=== PATIENT | male | born 1950 | race African-American/Black ===

== ENCOUNTER 2017-02-10 11:11 | Inpatient (IN) ==
[2017-02-10] MEDS ORDERED: SODIUM CHLORIDE 0.9% 1,000 ML IV STA (12:05)
[2017-02-10] MEDS ORDERED: cefTRIAXone 1,000 MG in SODIUM CHLORIDE 0.9% 100 ML IV STA (12:05)
--- NOTE | 2017-02-10 12:07 | Emergency Department Note ---
Popeye Saleem Brittany, am scribing for, and in the presence of, Lázaro Ghotra MD 11:51. Paradise Saleem Charles R, MD, personally performed the services described in this documentation, ascribed by Hortencia Nye in my presence, and it is both accurate and complete . Arrival - Arrival Chief Complaint: Neuro ED Nursing Triage Note: pt started having confusion, alt loc and pt has rt side weakness and facial droop. onset about 1999 last night Mode of Arrival: Stretcher Limitations: No Limitations Source: Family Time Seen by Provider: 02/10/17 11:21 - History of Present Illness HPI Narrative: This is a 67 y/o male,who presents to the ED by EMS for further neurological evaluation. His family reports the pt started to have confusion at [id number] this morning. He was at his normal baseline last night before going to bed. His states pt was "warm to the touch" this morning. His states the confusion increased this morning. His also notes a cough. She reports when pt coughs it sounds like he is chocking on his sputum. Pt has no other complaints/pain in the ED at this time. Pt has a PMHx of HTN, dyslipidemia, GOUT , and multi myeloma. Pt denies a surgical Hx. Pt denies a family medical hx. Pt denies a social Hx. Pt's oncologist is Dr. Dominguez Jennings in [place]. Onset (ago): hour(s) (Started at 1999 last night) Consistency: constant Severity: moderate, severe Allergies/Adverse Reactions: Allergies Allergy/AdvReac Type Severity Reaction Status Date / Time No Known Allergies Allergy Unverified 02/10/17 11:22 Home Medications: Home Medications Medication Instructions Recorded Confirmed Type Acyclovir [Acyclovir Cap/Tab] 400 mg PO QAM 02/10/17 02/10/17 History Allopurinol 300 mg PO QAM 02/10/17 02/10/17 History Escitalopram Oxalate [Escitalopram 10 mg PO QAM 02/10/17 02/10/17 History Oxalate] Gabapentin Cap/Tab [Neurontin 900 mg PO TID 02/10/17 02/10/17 History Cap/Tab] Investigational Chemotherapy 0 mg PO DAILY 02/10/17 02/10/17 History Losartan [Cozaar] 50 mg PO QAM 02/10/17 02/10/17 History Metoprolol Succinate 50 mg PO QAM 02/10/17 02/10/17 History Ondansetron HCl 8 mg PO Q8H PRN 02/10/17 02/10/17 History Oxycodone HCl 5 mg PO Q4H PRN 02/10/17 02/10/17 History Sennosides [Senna] 8.6 mg PO DAILY PRN 02/10/17 02/10/17 History Review of System - Review of System 12 point system: reviewed and no additional remarkable complaints except as stated - Review of System Constitutional: Present: fever (Low grade, family states pt felt warm to the touch this morning. ) Respiratory: Present: cough Neurological: Present: weakness (Right sided weakness), confusion Medical,Surgical,& Family Hx - Medical History Cardio: History of: Hypertension Endocrine: History of: Dyslipidemia Rheumatology: History of;: Gout Other: History of: Miscellaneous Medical Problems (multi myeloma) - Social History Smoking Status: Smoker, status unknown Frequency of Alcohol Use: None Type of Drug Use: None Exam Vital Signs: Vital Signs Temperature 99.0 F 02/10/17 11:16 Pulse Rate 103 H 02/10/17 11:16 Respiratory Rate 21 02/10/17 12:40 Blood Pressure 187/100 02/10/17 11:16 O2 Sat by Pulse Oximetry 100 02/10/17 11:16 - General General appearance: alert, in no apparent distress - Head Head exam: Present: atraumatic, normocephalic, normal inspection - Eye Eye exam: Present: normal appearance, PERRL, EOMI. Absent: nystagmus - ENT ENT exam: Present: normal exam, mucous membranes moist - Neck Neck exam: Present: normal inspection, full ROM, trachea midline. Absent: tenderness - Chest Chest inspection: Present: normal inspection, symmetric chest wall rise. Absent : tenderness - Respiratory Respiratory exam: Present: rhonchi (Bilateral Rhonchi). Absent: normal lung sounds bilaterally - Cardiovascular Cardiovascular exam: Present: normal rhythm, tachycardia, normal heart sounds. Absent: murmur, rubs, gallop, clicks, JVD - Abdominal Exam Abdominal exam: Present: soft, normal bowel sounds. Absent: distention, tenderness, guarding, rebound, rigidity - Rectal Exam Rectal exam: Present: deferred - Extremities Exam Extremities exam: Present: pedal edema (+1 pitting edema to the BLE). Absent: tenderness - Back Exam Back exam: Present: normal inspection, full ROM. Absent: tenderness, muscle spasm, rashes - Neurological Exam Neurological exam: Present: alert, motor sensory deficit (Global aphasia, right sided weakness slight right sided facial droop, follows some commands), other - Psychiatric Psychiatric exam: Present: normal affect, normal mood. Absent: agitated, anxious, flat affect - Skin Skin exam: Present: warm, dry, intact, normal color. Absent: rash, cyanosis, diaphoresis, erythema, pallor, mottled Course Course Narrative: Patient is not in the timeframe to receive TPA greater than 34 hours unknown onset of time right-sided weakness - Consultations Consultation #1: I will contact the hospitalist and consult for an admission. Consultation #2: Hospitalist will admit patient Time: 14:41 Results - Labs CBC & BMP: 02/10/17 13:08 02/10/17 13:08 Lab Results: I have reviewed the patients labs Labs: Laboratory Tests 02/10/17 02/10/17 02/10/17 13:08 13:08 Unknown WBC 3.0 L RBC 2.60 L Hgb 9.9 L Hct 27.4 L MCV 105.4 H MCH 38 H MCHC 36.1 H RDW 14.2 Plt Count 21 L* MPV 10.3 Neut % (Auto) 61.1 Lymph % (Auto) 30.6 Butler % (Auto) 8.3 Eos % (Auto) 0.0 Baso % (Auto) 0.0 Neut # (Auto) 1.8 Lymph # (Auto) 0.9 L Butler # (Auto) 0.3 Eos # (Auto) 0.0 Baso # (Auto) 0.0 Total Counted 100 Immature Gran % 0.0 Nucleated RBC % 0.0 Immature Gran # 0.00 Segmented Neutrophils 67 Lymphocytes 29 Monocytes 4 Nucleated RBCs # 0.00 Platelet Estimate Decreased Immature Plt Fraction 9.3 H Polychromasia 1+ Poikilocytosis Slight Anisocytosis 1+ Macrocytosis 1+ Tear Drop Cells Slight Sodium 139 Potassium 3.4 L Chloride 105 Carbon Dioxide 27 Anion Gap 10.4 BUN 12 Creatinine 1.20 GFR Calculation 98 BUN/Creatinine Ratio 10.00 Glucose 104 Calculated Osmolality 276.5 Calcium 8.7 Magnesium 1.6 L Total Bilirubin 0.50 AST 18 ALT 24 Alkaline Phosphatase 82 Ammonia 41 H Troponin I < 0.015 Total Protein 6.8 Albumin 3.6 Globulin 3.2 Albumin/Globulin Ratio 1.1 Free T4 0.88 TSH 3rd Generation 0.713 Prolactin 2.3 - Diagnostic Findings Procedure: Chest x-ray: report reviewed by me (Stable prominence of the right hilum. Worseningatelectais at the right lung base. ), CT: report reviewed by me (Head CT: Faint area of decreased density in the left basal ganglia, may represetn subacute can't or infarct. No other evidence of acue process. ) Critical Care Time Critical Care Time: Yes Disposition Clinical Impression: Cerebrovascular accident, Multiple sclerosis, Thrombocytopenia, Altered mental status, Fever Case discussed with: patient, patient's family Disposition: Still a Patient Condition: Critical Time of Disposition: 14:43 Contact your physician if you experience:: fever over 101, Difficulty voiding, Redness or swelling, Nausea/Vomiting, Shortness of breath, Bleeding, pain uncontrolled by pain medications, Other Return to the Emergency Department if:: fever over 101, Difficulty voiding, Redness or swelling, Nausea/Vomiting, Shortness of breath, Bleeding, pain uncontrolled by pain medications, Other NIH Stroke Score - Stroke Score Initial Assessment Level of Consciousness: Drowsy Level of Consciousness Questions: Answers One Correctly Level of Consciousness Commands: Obeys One Correctly Best Gaze: Normal Visual [place]: No Visual Loss Facial Palsy: Minor Motor - Right Arm: Can't Resist [place] Motor - Left Arm: No Drift Motor - Right Leg: Drift Motor - Left Leg: No Drift Limb Ataxia: Absent Sensory ([place]): Normal Best Language: Mild to Moderate Aphasia Dysarthria: Mild to Moderate Extinction / Inattention (Neglect): No Neglect NIH Stroke Score: 9
--- NOTE | 2017-02-10 12:18 | CT Report ---
CT brain Indication: Right-sided weakness, confusion Comparison: None available Technique: Axial CT imaging of the brain is performed without contrast with 3 mm increments. Findings: No evidence of hemorrhage, mass mass effect midline shift or acute infarct seen. There is moderate diffuse cerebral atrophy. There are areas of decreased density seen within the white matter likely related to chronic microvascular changes. There is a faint area of decreased density in the left basal ganglia, poorly defined. Otherwise the brain parenchyma attenuation and differentiation appears within normal limits. The ventricles and cisterns are normal in caliber. No cranial or skull base abnormality is identified. Impression: Faint area of decreased density in left basal ganglia, may represent subacute can't or infarct. No other evidence of acute process. This CT exam was performed using one or more the following dose reduction techniques: Automated exposure control, adjustment of the MA and/or KV according to patient size, or use of iterative reconstruction technique. PROCEDURE INTERPRETED AT [facility] DEPARTMENT OF RADIOLOGY Final Report Signed by: Dr. Sam Benitez
[2017-02-10] MEDS ORDERED: cefTRIAXone 1,000 MG VIAL ONE (12:28)
--- NOTE | 2017-02-10 12:42 | XRay Report ---
Single view the chest. Indication: Altered mental status. The heart is borderline enlarged. The pulmonary vasculature is normal. The right hilum remains prominent but stable. Chemo-Port is in satisfactory position. Atelectasis is present at the right lung base, worsened compared to the previous exam. Degenerative changes are noted at both shoulders and within the spinal column. Impression: Stable prominence of the right hilum. Worsening atelectasis at the right lung base. PROCEDURE INTERPRETED AT [facility] DEPARTMENT OF RADIOLOGY Final Report Signed by: Dr. Shima Alvares
[2017-02-10 13:27] LABS: Hematocrit 27.4 VOL% (42.0-52.0); Hemoglobin 9.9 GM/DL (14.0-18.0); Lymphocytes # 0.9 10*3/uL (1.4-4.0); Lymphocytes % 30.6 % (21.2-54.2); Mean Corpuscular HGB Conc 36.1 GM/DL (32-36); Mean Corpuscular Hemoglobin 38 PG (27-34); Mean Corpuscular Volume 105.4 FL (87-102); Mean Platelet Volume 10.3 FL (9.6-12.0); Monocytes # 0.3 10*3/uL (0.11-0.8); Monocytes % 8.3 % (1.7-12.7); Neutrophils # 1.8 10*3/uL (1.4-7.4); Neutrophils % 61.1 % (38.7-73.9); Red Cell Distribution Width 14.2 % (9.3-17.3)
[2017-02-10 13:30] LABS: Platelet Count 21 T/CUMM (130-400)
[2017-02-10 13:47] LABS: Ammonia 41 UMOL/L (11-32)
[2017-02-10 13:51] LABS: Anisocytosis 1+; Lymphocytes 29 % (20-55); Macrocytosis 1+; Platelet Estimate Decreased; Poikilocytosis Slight; Polychromasia 1+; Segmented Neutrophils 67 % (50-85); Tear Drop Cells Slight; Total Cells Counted 100
[2017-02-10 13:57] LABS: Alanine Aminotransferase 24 U/L (16-61); Albumin 3.6 G/DL (3.4-5.0); Alkaline Phosphatase 82 U/L (45-117); Aspartate Amino Transferase 18 U/L (0-37); Blood Urea Nitrogen 12 MG/DL (7-18); Calcium 8.7 MG/DL (8.5-10.1); Free T4 (Free Thyroxine) 0.88 NG/DL (0.76-1.46); Glucose 104 MG/DL (74-106); Magnesium 1.6 MG/DL (1.8-2.4); Osmolality,Calculated 276.5 MOS/KG (273-304); Potassium 3.4 MMOL/L (3.5-5.1); Sodium 139 MMOL/L (136-145); Thyroid Stimulating Hormone 0.713 uIU/ml (0.358-3.74); Total Protein 6.8 G/DL (6.4-8.3); Troponin I Only < 0.015 NG/ML (0.00-0.045)
[2017-02-10] MEDS ORDERED: MAGNESIUM SULF RIDER 2 GM in PREMIX 1 EACH IV STA (14:21)
--- NOTE | 2017-02-10 14:43 | EKG Report ---
Stationary ECG Study [facility] ER Test Date: 02/10/2017 11:18:51 AM Pat Name: KEITH JC Department: Room: Gender: M Nursing Teacher: : 1950 Requested by: Lázaro Farfan Order Number: [id number] Reading MD: NELIA KO Intervals [place] Rate: 93 P: 999 MS: 0 QRS: 10 QRSD: 100 T: 48 QT: 373 QTc: 424 Interpretive Statements ATRIAL FIBRILLATION WITH CONTROLLED RATE OTHERWISE NORMAL TRACING Electronically Signed On 02-11-17 07:07:57 CDT by NELIA KO [email or web address]
--- NOTE | 2017-02-10 15:40 | Hospitalist History & Physical ---
Assessment and Plan - Time spent with patient Time spent with patient: Greater than 30 minutes (1) Multiple myeloma Status: Acute Assessment and plan: 67-year-old -[place] male with history of hypertension, multiple myeloma on chemotherapy, A. fib not on anticoagulation, and gout admitted by the hospitalist service with acute CVA with right-sided weakness and altered mental status. Patient will be admitted to ICU under Dr. Medley's care. Will get OT, PT, and ST evaluations. Patient is not a candidate for anticoagulation due to his platelets of 21. Carotid ultrasounds and MRI were ordered for the morning. Neurology will be consulted as well. Will discuss with Dr. Medley to see if he wants to go ahead and consult the on-call oncologist. Dr. Medley we will see and examine patient and further recommendations to follow. Current Visit: Yes (2) Hypertension Status: Acute Current Visit: Yes (3) Pancytopenia Status: Acute Current Visit: Yes (4) Cerebrovascular accident Status: Acute Current Visit: Yes (5) Altered mental status Status: Acute Current Visit: Yes History of Present Illness Chief complaint: Right-sided weakness History of present illness: Mr. Goyal is a 67 year old -[place] male with history of multiple myeloma, neuropathy, hypertension, A. fib not on anticoagulation, and gout presenting to the ED with acute onset of right-sided weakness and altered mental status. Patient's gives the majority of the history because patient is somewhat altered. She states that the patient has been receiving chemo for multiple myeloma where he takes a pill a day for the last year. He is treated by an oncologist in [facility]. They are just here visiting for a family reunion. She states he did not take the pill yesterday because he was starting to get a scratchy throat so they held the medicine for right now. She states when he woke up this morning he was weak on the right side and he could not walk and he was talking out of his head. She states she has had A. fib for last year so but they took him off his Eliquis approximately 6 months ago because of the low platelets. Patient denies headache, blurred vision, dysphagia, chest pain, shortness of breath, abdominal pain, or lower extremity edema. Upon exam patient is groggy acting and he will answer questions but about 50% are correct per his . He has obvious right-sided weakness and his blood pressure is elevated at 187/100. He does have a low-grade fever of 99. His WBCs are 3, RBCs 2.6, H&H 9.9/27.4, platelets 21, potassium low at 3.4 , magnesium low at 1.6, ammonia level high at 41, negative troponins. CT the head is showing a faint area of decreased density in the left basal ganglia. Chest x-ray showing atelectasis of the right lung base. After discussion with Dr. Ghotra the ED physician and Dr. Medley the admitting hospitalist, it was agreed patient would be admitted for further evaluation and treatment. Home Medications Medication Instructions Recorded Confirmed Type Acyclovir [Acyclovir Cap/Tab] 400 mg PO QAM 02/10/17 02/10/17 History Allopurinol 300 mg PO QAM 02/10/17 02/10/17 History Escitalopram Oxalate [Escitalopram 10 mg PO QAM 02/10/17 02/10/17 History Oxalate] Gabapentin Cap/Tab [Neurontin 900 mg PO TID 02/10/17 02/10/17 History Cap/Tab] Investigational Chemotherapy 0 mg PO DAILY 02/10/17 02/10/17 History Losartan [Cozaar] 50 mg PO QAM 02/10/17 02/10/17 History Metoprolol Succinate 50 mg PO QAM 02/10/17 02/10/17 History Ondansetron HCl 8 mg PO Q8H PRN 02/10/17 02/10/17 History Oxycodone HCl 5 mg PO Q4H PRN 02/10/17 02/10/17 History Sennosides [Senna] 8.6 mg PO DAILY PRN 02/10/17 02/10/17 History Allergies Allergy/AdvReac Type Severity Reaction Status Date / Time No Known Allergies Allergy Unverified 02/10/17 11:22 Medical,Surgical,& Family Hx - Medical History Cardio: History of: Hypertension Endocrine: History of: Dyslipidemia Rheumatology: History of;: Gout Other: History of: Miscellaneous Medical Problems (multi myeloma) - Surgical History Additional Surgical History: Mediport - Family History Family History: Reports;: Family Heart Disease - Social History Smoking Status: Never smoker Frequency of Alcohol Use: None Type of Drug Use: None Marital Status: Lives With:: Spouse Functional capacity: independent ambulation Review of systems: A complete 10 system review of systems was obtained and pertinent positives and negatives per HPI Exam - Constitutional Vitals: Period Temp Pulse Resp BP Sys/[place] Pulse Ox Last 24 Hr 99.0 F-99.0 F 103-103 18-21 187-187/100-100 100 Exam: Constitutional System: No distress. No tremulousness. Head: Normocephalic, atraumatic. Ears, Nose and Throat System: No evidence of Otitis or Mastoiditis. No epistaxis or discharge, tongue midline Eyes System: Pupils equal, round, and reactive. Extraocular muscles intact. No nystagmus Neck: Supple, without adenopathy, No jugular venous distention. No thyromegaly, neck mass, or prior surgery apparent. Respiratory System: Chest clear to auscultation. Cardiovascular System: Heart with irregularly irregular rate and rhythm. No murmur. GI System: Abdomen soft, nontender. Normo active bowel sounds present. Musculoskeletal System: limbs with no pedal edema. Full distal pulses. MMT left upper and lower extremity 5/5, MMT right upper and lower extremity 3+/5, sensation equal bilaterally upper and lowers, Neurological System: No discernable sensory deficit. No aphasia, confused to time and place Psychiatric System: Conversation is rational Results - Labs CBC & BMP: 02/10/17 13:08 02/10/17 13:08 Lab Results: I have reviewed the past 24 hour labs - EKG EKG shows: atrial fibrillation - Diagnostic Findings Procedure: Chest x-ray: report reviewed by me (Stable prominence of right hilum with atelectasis in the right lung base), CT: report reviewed by me (CT the head shows faint area of decreased density in the left basal ganglia.) Quality Measures - Stroke Symptom Onset Unknown: Yes
[2017-02-10] MEDS ORDERED: MAGNESIUM SULF RIDER 50 ML IV ONE (15:57)
[2017-02-10] MEDS ORDERED: ONDANSETRON 4 MG TABLET PO PRN (17:21)
[2017-02-10] MEDS ORDERED: LABETALOL 20 MG/4 ML SYRINGE IV PRN (17:21)
[2017-02-10] MEDS ORDERED: SENNA 8.6 MG TABLET PO PRN (17:21)
[2017-02-10] MEDS: SODIUM CHLORIDE 0.9% 1,000 ML IV SCH (17:34)
[2017-02-10] MEDS ORDERED: HALOPERIDOL 5 MG/ML AMP IV PRN (20:47)
[2017-02-10] MEDS: LORazepam 2 MG/1 ML VIAL IV PRN (21:31)
[2017-02-10] MEDS ORDERED: OLANZapine 10 MG VIAL IM PRN (23:29)
[2017-02-11] MEDS: ZIPRASIDONE 20 MG/1 ML VIAL IM PRN ×2 (00:07→11:38)
[2017-02-11] MEDS: SODIUM CHLORIDE 0.9% 1,000 ML IV SCH ×2 (01:31→19:41)
[2017-02-11] MEDS: LORazepam 2 MG/1 ML VIAL IV PRN ×3 (01:36→12:45)
[2017-02-11 06:04] LABS: Hematocrit 28.3 VOL% (42.0-52.0); Hemoglobin 10.2 GM/DL (14.0-18.0); Immature Granulocytes % 0.3 %; Immature Granulocytes Absolute 0.01 #; Lymphocytes # 0.8 10*3/uL (1.4-4.0); Lymphocytes % 25.6 % (21.2-54.2); Mean Corpuscular Hemoglobin 38 PG (27-34); Mean Corpuscular Volume 106.4 FL (87-102); Monocytes # 0.3 10*3/uL (0.11-0.8); Monocytes % 8.1 % (1.7-12.7); Neutrophils # 2.1 10*3/uL (1.4-7.4); Red Blood Count 2.66 MC/CUMM (3.8-5.5); White Blood Count 3.2 T/CUMM (4-12)
[2017-02-11 06:10] LABS: Platelet Count 23 T/CUMM (130-400)
[2017-02-11 06:27] LABS: INR 1.1; PT Patient Result 11.8 SECS
[2017-02-11 06:39] LABS: Calcium 8.2 MG/DL (8.5-10.1); Magnesium 2.3 MG/DL (1.8-2.4); Osmolality,Calculated 280.4 MOS/KG (273-304); Potassium 3.7 MMOL/L (3.5-5.1); Troponin I Only 0.018 NG/ML (0.00-0.045)
[2017-02-11 06:40] LABS: Risk Ratio 3.74; VLDL CHOLESTEROL 24.4 MG/DL
[2017-02-11 06:50] LABS: Band Neutrophils 7 % (0-10); Hypochromasia 1+; Lymphocytes 25 % (20-55); Platelet Estimate Decreased; Segmented Neutrophils 64 % (50-85); Total Cells Counted 100
[2017-02-11 06:51] LABS: Macrocytosis Slight
--- NOTE | 2017-02-11 07:34 | Oncology History&Physical ---
History of Present Illness Chief complaint: Myeloma? History of present illness: Mr. Goyal is a 67 year old male who has suffered a stroke while visiting here. He is evidently under the care of a cancer specialist for myeloma and his oral medication has not been identified. We need to obtain records from his treating physician and find out details on the current medication that he is receiving. It supposed to be experimental. He has a history of myeloma as well as atrial fibrillation and now has been admitted with a cerebrovascular accident with right facial drooping. Lab work on admission included a white cell count of 3000 with an absolute neutrophil count of 1800 and he had a platelet count of 21,000. His hemoglobin was 9.9. This is 1 of the reasons apparently that he is not on anticoagulation. His comprehensive metabolic profile is relatively normal although he has an elevated serum ammonia of 41 in spite of the fact that his transaminases are normal. Renal function is normal and his serum calcium is normal. I cannot actually get any history from this patient. He is unresponsive presently although he does withdraw when I examine him. He pushes my hand away when I am checking for lymphadenopathy and also when I am listening to his chest. His past medical history is negative for any known allergies. Current medications include acyclovir, allopurinol, citalopram, gabapentin, Cozaar, metoprolol, oxycodone, ondansetron and an unknown "investigational" chemotherapy medication. I cannot obtain any additional past medical history, family history, social history or review of systems presently. There is all ready some information on the patient's EMR. Physical examination: General: The patient appears acutely ill and unresponsive. He has right facial drooping. He appears weaker on the left side than the right to me. When I check for cervical adenopathy he pushes my hand away with his right hand. Eyes: He has periorbital edema. ENT: His trachea is midline and he has no neck masses. Lungs: Breath sounds are relatively normal with symmetrical unlabored chest motion with respiration. Again, when I palpate his chest he pushes my hand away but he does not grimace. Cardiovascular: Currently he has tachycardia and I do not detect any arrhythmia or irregular heartbeat. There is no jugular venous distention, clubbing or cyanosis. Abdomen: I palpate no abdominal masses, organomegaly, ascites or distention. There is no apparent tenderness. Musculoskeletal: There is no focal muscle atrophy or bone or joint deformity. Neurologic: Right facial weakness and apparent left sided arm weakness. Nodes: I palpate no cervical, submandibular, supraclavicular or axillary adenopathy. Skin: I find no significant skin rashes. Impression: Cerebrovascular accident of acute onset, currently being evaluated History of myeloma on oral therapy of indefinite type Thrombocytopenia with a platelet count of 21,000 on admission Mild leukopenia with a white cell count of 3000 and an absolute neutrophil count of 1800 Anemia with a hemoglobin of 9.9. I will go ahead and order protein studies to assess his myeloma. He may not be able to be transported for some time. I have given an order to "caregiver" to obtain records from the patient's treating physician. I will follow with you. Thank you. Home Medications Medication Instructions Recorded Confirmed Type Acyclovir [Acyclovir Cap/Tab] 400 mg PO QAM 02/10/17 02/10/17 History Allopurinol 300 mg PO QAM 02/10/17 02/10/17 History Escitalopram Oxalate [Escitalopram 10 mg PO QAM 02/10/17 02/10/17 History Oxalate] Gabapentin Cap/Tab [Neurontin 900 mg PO TID 02/10/17 02/10/17 History Cap/Tab] Investigational Chemotherapy 0 mg PO DAILY 02/10/17 02/10/17 History Losartan [Cozaar] 50 mg PO QAM 02/10/17 02/10/17 History Metoprolol Succinate 50 mg PO QAM 02/10/17 02/10/17 History Ondansetron HCl 8 mg PO Q8H PRN 02/10/17 02/10/17 History Oxycodone HCl 5 mg PO Q4H PRN 02/10/17 02/10/17 History Sennosides [Senna] 8.6 mg PO DAILY PRN 02/10/17 02/10/17 History Allergies Allergy/AdvReac Type Severity Reaction Status Date / Time No Known Allergies Allergy Unverified 02/10/17 11:22 Medical,Surgical,& Family Hx - Medical History Cardio: History of: Cardiac Dysrhythmia (A fib), Hypertension Neurology: History of: Cerebrovascular Accident (current visit) Endocrine: History of: Dyslipidemia, Endocrine Problems (borderline DM) Rheumatology: History of;: Gout Genitourinary: History of: Prostate Problems Other: History of: Miscellaneous Medical Problems (multi myeloma) - Surgical History Neurologic Surgeries: Patient denies: Neurologic Surgery - Family History Family History: Reports;: Family Heart Disease - Social History Smoking Status: Never smoker Frequency of Alcohol Use: None Type of Drug Use: None Exam - Constitutional Vitals: Period Temp Pulse Resp BP Sys/[place] Pulse Ox Last 24 Hr 97.8 F-99.2 F 77-115 16-35 118-187/68-115 94-100 Results - Labs CBC & BMP: 02/11/17 04:36 02/11/17 04:36 Quality Measures - VTE Contraindication No Overlap Therapy: Thrombocytopenia Contraindication to Pharmacological VTE Prophylaxis: Thrombocytopenia - Stroke Contraindication No Antithrombotic By Day Two: Metastatic Cancer
--- NOTE | 2017-02-11 08:16 | Physician Query Form ---
CLICK EDIT DOCUMENT TO SELECT QUERY ANSWER --> OK --> SIGN Kelsie Plummer RN, CCDS Certified Clinical [employer] Hel[employer] W) [phone] (f) [phone] [email or web address] PROVIDERS: Make your selection(s) from the choices in EACH section by typing an "x" and enter comments in the comment section. Please use your independent medical judgment in providing your response. This request does not imply that any particular answer is desired or expected. CLINICAL INDICATORS: (Providers should not edit this section) The medical record indicates that the patient was admitted with AMS, "he was talking out of his head", "Groggy acting and he will answer questions but about 50% are correct per his "; "elevated serum ammonia of 41", on the " unresponsive presently" and the patient had a CT of the brain. ACUITY: ( X) Acute ( ) Acute on Chronic ( ) Chronic ( ) Clinically unable to determine NATURE: (X ) Delirium due to general medical condition ( ) Dementia ( ) Encephalopathy ( ) Encephalopathy due to acute CVA ( ) Hepatic Encephalopathy ( ) Unconscious ( ) Transient level of awareness ( ) Comatose ( ) Locked-in State ( ) Persistent Vegetative State ( ) Other, please specify: ( ) Clinically unable to determine Please indicate the underlying cause of the altered mental status (CHECK ALL THAT APPLY): ( ) Baseline dementia ( ) Alzheimer's disease ( ) Parkinson's disease ( ) Lewy body dementia ( ) Acute stroke ( ) Late effect of stroke ( ) Reactive (from emotional stress, psychological trauma) ( ) Due to narcotics/other drugs ( ) Post procedural delirium ( ) Transient ischemic attack ( ) Generalized cerebral edema ( ) Normal pressure hydrocephalus ( ) Psychiatric illness ( ) Other, please specify: ( ) Clinically unable to determine Please indicate if there is an infection, sepsis, dehydration or specific organ failure that is causing the dementia. Be specific with clarifying the relationship between that process and the mental status change. COMMENTS: PLEASE ALSO DOCUMENT RESPONSE IN PROGRESS NOTES AND/OR DISCHARGE SUMMARY Use of terms such as suspected, likely, or probable (associated with a specific diagnosis that is being evaluated, monitored, or treated as if it exists) are acceptable and can be restated in the discharge summary if not ruled out. MTDD
--- NOTE | 2017-02-11 08:17 | Physician Query Form ---
CLICK EDIT DOCUMENT TO SELECT QUERY ANSWER --> OK --> SIGN Kelsie Plummer RN, CCDS Certified Clinical Behavioral Health Assistant W) [phone] (f) [phone] [email or web address] PROVIDERS: Make your selection(s) from the choices in EACH section by typing an "x" and enter comments in the comment section. Please use your independent medical judgment in providing your response. This request does not imply that any particular answer is desired or expected. CLINICAL INDICATORS: (Providers should not edit this section) The medical record indicates that the patient was admitted with AMS, Pancytopenia, and "history of multiple myeloma on chemotherapy". Based on the above, could you clarify the appropriate diagnosis, if significant , that supports the above abnormalities and additional evaluation, monitoring, and/or treatment rendered: ( X) Pancytopenia due to chemotherapy ( ) Pancytopenia due to ( ) Other, please specify: ( ) Clinically unable to determine COMMENTS: PLEASE ALSO DOCUMENT RESPONSE IN PROGRESS NOTES AND/OR DISCHARGE SUMMARY Use of terms such as suspected, likely, or probable (associated with a specific diagnosis that is being evaluated, monitored, or treated as if it exists) are acceptable and can be restated in the discharge summary if not ruled out. MTDD
[2017-02-11] MEDS ORDERED: MORPHINE 2 MG/1 ML SYRINGE IV PRN (08:59)
[2017-02-11] MEDS ORDERED: cloNIDine 0.3 MG/24 HR PATCH TRANSDERM SCH (09:00)
[2017-02-11] MEDS ORDERED: [UNRECOGNIZED DRUG - OTHER] PO SCH (09:00)
--- NOTE | 2017-02-11 09:35 | Hospitalist Progress Note ---
Assessment and Plan (1) Cerebrovascular accident Status: Acute Assessment and plan: The patient has stroke syndrome which is most likely associated with his ongoing atrial fibrillation. The patient has multiple myeloma and is under treatment by his oncologist in [place]. The patient's thrombocytopenia limits our ability to anticoagulate him. The patient will have an MRI scan today. We will control the blood pressure with Catapres patch and add Cardene infusion. The patient is unable to take oral medications at this time. I am going to reduce the patient's IV rate and consider options for nutrition tomorrow. Current Visit: Yes Qualifiers: CVA mechanism: embolism (2) Altered mental status Status: Acute Current Visit: Yes (3) Multiple myeloma Status: Acute Current Visit: Yes (4) Hypertension Status: Acute Current Visit: Yes Hospitalist: Subjective Interval history: The patient was admitted yesterday with strokelike symptoms. The patient was delirious through the night and required additional sedation. The patient is mostly cooperative with medical care today. The patient is able to move all extremities although he seems to have some left-sided weakness. The patient has been incontinent of urine. The patient's blood pressure is elevated and uncontrolled at present. The patient had oncology evaluation this morning. Exam - Constitutional Vitals: Period Temp Pulse Resp BP Sys/Barajas Pulse Ox Last 24 Hr 97.8 F-99.2 F 77-115 16-35 118-187/68-115 94-100 Exam: Constitutional System: Mild distress. No tremulousness. The patient is delirious. The patient is breathing comfortably and appears to be pain-free. Head: Normocephalic, atraumatic. Ears, Nose and Throat System: No evidence of Otitis or Mastoiditis. No epistaxis or discharge Eyes System: Pupils equal, round, and reactive. Extraocular muscles intact. Neck: Supple, without adenopathy, No jugular venous distention. No thyromegaly , neck mass, or prior surgery apparent. Respiratory System: Chest clear to auscultation. The patient has some upper airway congestion Cardiovascular System: Heart with regular rate and rhythm. No murmur. GI System: Abdomen soft, nontender. Normo active bowel sounds present. Musculoskeletal System: limbs with no pedal edema. Full distal pulses. Neurological System: No discernable sensory deficit. The patient has speech but is incomprehensible. Psychiatric System: Conversation is limited to yes and no answers Results - Labs CBC & BMP: 02/11/17 04:36 02/11/17 04:36 Lab Results: I have reviewed the past 24 hour labs Quality Measures - VTE Contraindication No Overlap Therapy: Thrombocytopenia Contraindication to Pharmacological VTE Prophylaxis: Thrombocytopenia - Stroke Contraindication No Antithrombotic By Day Two: Metastatic Cancer
[2017-02-11] MEDS: niCARdipine INJ 50 MG in SODIUM CHLORIDE 0.9% 230 ML IV SCH ×2 (09:58→22:45)
[2017-02-11 10:13] LABS: Immunoglobulin A 54 MG/DL (70-400); Immunoglobulin G 1390 MG/DL (700-1600); Immunoglobulin M 22 MG/DL (40-230)
[2017-02-11 10:28] LABS: Immunoglobulin A (Chem) 54 MG/DL (70-400); Immunoglobulin G (Chem) 1390 MG/DL (700-1600); Immunoglobulin M (Chem) 22 MG/DL (40-230)
[2017-02-11] MEDS: METOPROLOL SUCCINATE XL 50 MG TABLET PO SCH (10:55)
[2017-02-11] MEDS: ACYCLOVIR 200 MG CAPSULE PO SCH (10:59)
[2017-02-11] MEDS: ASPIRIN 325 MG TABLET PO SCH (10:59)
[2017-02-11] MEDS: ALLOPURINOL 300 MG TABLET PO SCH (10:59)
[2017-02-11] MEDS ORDERED: LORazepam 2 MG/1 ML VIAL IV ONE (13:00)
--- NOTE | 2017-02-11 15:10 | Ultrasound Report ---
Indication: Altered mental status. CAROTID ULTRASOUND Comparison: None. Findings: Grayscale, color Doppler and pulsed Doppler interrogation of the carotid and vertebral arteries performed. Severity of stenosis based on flow velocity measurements using NASCET criteria. Ultrasound images are captured and stored. Distal right ICA diameter: 5.7 mm Distal left ICA diameter: 6.4 mm Peak systolic flow velocities in centimeters per second are as follows: Right: CCA: 51.9 Proximal ICA: 75.7 Distal ICA: 75.7 ICA/CCA ratio: 1.5 Left: CCA: 40.3 Proximal ICA: 50.8 Distal ICA:36.5 ICA/CCA ratio: 1.3 External carotid arteries: Both are patent with antegrade flow. Vertebral arteries: Both are patent with antegrade flow. Grayscale and color Doppler images: No significant focal plaque deposition identified, with normal color Doppler flow present. Pulse Doppler waveform interrogation: No significant spectral broadening. Impression: No hemodynamically significant stenosis of either ICA origin. PROCEDURE INTERPRETED AT [facility] DEPARTMENT OF RADIOLOGY Final Report Signed by: Michael Champion M.D.
--- NOTE | 2017-02-11 16:27 | Neurology Consult Note ---
History of Present Illness History of present illness: Mr. Goyal is a 67 year old -[place] male with history of multiple myeloma, neuropathy, hypertension, A. fib not on anticoagulation because of extremely low platelet count, and gout admitted to the hospital with acute onset of right-sided weakness and altered mental status along with the speech difficulties. reported that the patient has been receiving chemo for multiple myeloma where he takes a pill a day for the last year. He is treated by an oncologist in [facility]. They are just here visiting for a family reunion. She states when he woke up yesterday morning he was weak on the right side and he could not walk and he was talking out of his head. She states she has had A. fib for last year so but they took him off his Eliquis approximately 6 months ago because of the low platelets. CT the head is showing a faint area of decreased density in the left basal ganglia. Patient is somewhat confused and restless. Did not get strong enough to get MRI today Home Medications Medication Instructions Recorded Confirmed Type Acyclovir [Acyclovir Cap/Tab] 400 mg PO QAM 02/10/17 02/10/17 History Allopurinol 300 mg PO QAM 02/10/17 02/10/17 History Escitalopram Oxalate [Escitalopram 10 mg PO QAM 02/10/17 02/10/17 History Oxalate] Gabapentin Cap/Tab [Neurontin 900 mg PO TID 02/10/17 02/10/17 History Cap/Tab] Investigational Chemotherapy 0 mg PO DAILY 02/10/17 02/10/17 History Losartan [Cozaar] 50 mg PO QAM 02/10/17 02/10/17 History Metoprolol Succinate 50 mg PO QAM 02/10/17 02/10/17 History Ondansetron HCl 8 mg PO Q8H PRN 02/10/17 02/10/17 History Oxycodone HCl 5 mg PO Q4H PRN 02/10/17 02/10/17 History Sennosides [Senna] 8.6 mg PO DAILY PRN 02/10/17 02/10/17 History Allergies Allergy/AdvReac Type Severity Reaction Status Date / Time No Known Allergies Allergy Unverified 02/10/17 11:22 ROS unobtainable: due to mental status, due to delirium Medical,Surgical,& Family Hx - Medical History Cardio: History of: Cardiac Dysrhythmia (A fib), Hypertension Neurology: History of: Cerebrovascular Accident (current visit) Endocrine: History of: Dyslipidemia, Endocrine Problems (borderline DM) Rheumatology: History of;: Gout Genitourinary: History of: Prostate Problems Other: History of: Miscellaneous Medical Problems (multi myeloma) - Surgical History Neurologic Surgeries: Patient denies: Neurologic Surgery - Family History Family History: Reports;: Family Heart Disease - Social History Smoking Status: Never smoker Frequency of Alcohol Use: None Type of Drug Use: None Exam - Constitutional Vitals: Period Temp Pulse Resp BP Sys/Barajas Pulse Ox Last 24 Hr 96.3 F-99.2 F 75-115 16-35 118-189/68-129 94-100 Exam: GENERAL: Patient is in no acute distress. NECK: Neck is supple. There is no JVD. No carotid bruits present. No thyroid masses. CVS: First and second heart sounds are normal. There is no S3 present. Regular rate and rhythm. RESPIRATORY: Lungs are clear to auscultation without any rales or rhonchi. ABDOMEN: Soft and non-tender. Bowel sounds are present. There is no hepatosplenomegaly. EXT: There is no palpable edema. Peripheral pulses are present. Skin: No rashes Central Nervous system: General: Alert, awake but somewhat disoriented Speech: Fluent and dysarthric Comprehension: Fair Facial expressions: Normal Cranial Nerves: Pupils are equally reactive to light. Extraocular movements are intact. Right central facial weakness Motor: Bulk and Tone is normal. Strength cannot be assessed however moving left side more than the right. Very minimal movements in the right upper extremity. Sensory: Cannot be tested Reflexes: 1+ and symmetrical Cerebellar function: Cannot be test Toes: Equivocal Gait: Cannot be tested Results - Labs CBC & BMP: 02/11/17 04:36 02/11/17 04:36 Assessment and Plan (1) Acute CVA (cerebrovascular accident) Status: Acute Assessment and plan: This does look like an embolic event We will try to do a CAT scan brain in the morning Echocardiogram Hold off to any blood thinners because of extremely low platelet counts Discussed at length with the family regarding the disease process, treatment options and prognosis Probably will require acute rehabilitation once stable Current Visit: Yes (2) Multiple myeloma Status: Acute Assessment and plan: Defer treatment to oncology Current Visit: Yes
[2017-02-11] MEDS: DILTIAZEM INJ 100 MG in SODIUM CHLORIDE 0.9% 100 ML IV SCH (23:00)
[2017-02-12 06:10] LABS: Eosinophils % 0.2 % (0.00-10.9); Hematocrit 29.6 VOL% (42.0-52.0); Hemoglobin 10.4 GM/DL (14.0-18.0); Immature Granulocytes % 0.5 %; Immature Granulocytes Absolute 0.02 #; Lymphocytes # 1.2 10*3/uL (1.4-4.0); Mean Corpuscular HGB Conc 35.1 GM/DL (32-36); Mean Corpuscular Hemoglobin 38 PG (27-34); Mean Corpuscular Volume 106.9 FL (87-102); Monocytes # 0.3 10*3/uL (0.11-0.8); Monocytes % 7.6 % (1.7-12.7); Neutrophils # 2.6 10*3/uL (1.4-7.4); Neutrophils % 62.7 % (38.7-73.9); Red Blood Count 2.77 MC/CUMM (3.8-5.5); Red Cell Distribution Width 14.3 % (9.3-17.3); White Blood Count 4.2 T/CUMM (4-12)
[2017-02-12 06:12] LABS: Platelet Count 26 T/CUMM (130-400)
[2017-02-12 06:24] LABS: INR 1.1; PT Patient Result 11.9 SECS
[2017-02-12 06:41] LABS: Band Neutrophils 2 % (0-10); Hypochromasia 1+; Lymphocytes 28 % (20-55); Macrocytosis Slight; Ovalocytes Slight; Segmented Neutrophils 67 % (50-85); Total Cells Counted 100
[2017-02-12 06:42] LABS: Platelet Estimate Decreased
[2017-02-12 06:46] LABS: Blood Urea Nitrogen 12 MG/DL (7-18); Calcium 8.4 MG/DL (8.5-10.1); Glucose 119 MG/DL (74-106); Magnesium 2.3 MG/DL (1.8-2.4); Osmolality,Calculated 281.3 MOS/KG (273-304); Potassium 3.3 MMOL/L (3.5-5.1); Sodium 141 MMOL/L (136-145); Troponin I Only < 0.015 NG/ML (0.00-0.045)
[2017-02-12 07:03] LABS: Immuno Free Light Chain Kappa 9.96 MG/DL (0.33-1.94); Immuno Free Light Chain Lambda 1.22 MG/DL (0.57-2.63); Immuno Free Light Chain Ratio 8.16 MG/DL (0.26-1.65)
--- NOTE | 2017-02-12 07:35 | Oncology Progress Note ---
Oncology Subjective PN Interval history: I discussed patient's case with his yesterday. He is now on an experimental oral medication called [id number]. His tells me that he has been on multiple different treatment for myeloma and it has continued to progress and he has had problems with severe pancytopenia for quite some time. Today, he clearly does have mild right-sided weakness with some right facial drooping. The left extremity appears to be normally functioning. The patient is confused. Lab work today includes a white cell count of 4200 with a platelet count of 26, 000 and a hemoglobin of 10.4. This is an IgG kappa myeloma. His IgG level is 1390 with an IgA level is low at 54 and an IgM level is low at 22. His kappa free light chain level is slightly elevated at 9.96 mg/dL. My recommendation would be to transfer the patient back to [place] soon as he is stable enough to travel. This is advanced myeloma and the long-term prognosis is not likely to be good. His treating oncologist is far more familiar with his case and far more capable of managing his complications then we can do down here. We have yet to receive any records from his regular physician. Exam - Constitutional Vitals: Period Temp Pulse Resp BP Sys/Barajas Pulse Ox Last 24 Hr 96.3 F-98.1 F 75-122 12-30 90-189/61-129 94-99 Results - Labs CBC & BMP: 02/12/17 04:43 02/12/17 04:43 Quality Measures - VTE Contraindication No Overlap Therapy: Thrombocytopenia Contraindication to Pharmacological VTE Prophylaxis: Thrombocytopenia - Stroke Contraindication No Antithrombotic By Day Two: Metastatic Cancer
--- NOTE | 2017-02-12 09:18 | Quality Management ---
To meet the Get With The Guidelines- Stroke requirements, The patient's LDL is 80.0. Please order the appropriate medication or provide a contraindication PRIOR to discharge. To complete this task, you will need to order the medication OR provide a contraindication utilizing the Order Management screen. Element definition from Manual for National Hospital Inpatient Quality Measures. National Hospital Inpatient Quality Measures Reasons for not prescribing a statin medication at discharge: Statin medication allergy Other reasons documented by physician/advanced practice nurse/physician [employer] assistant manager (physician/METAL MILLING MACHINE OPERATOR/PA) or pharmacist LDL-c less than 70 mg/dL DO NOT ORDER OR PROVIDE CONTRAINDICATIONS WITHIN THIS QUERY. THIS IS A MEANINGFUL USE REQUIREMENT! Thank you, Josefina Blackwell RN Clinical Retail Wireless Sales Consultant W [phone] RADHA
--- NOTE | 2017-02-12 09:27 | Hospitalist Progress Note ---
Assessment and Plan (1) Cerebrovascular accident Status: Acute Assessment and plan: The patient has stroke syndrome which is most likely associated with his ongoing atrial fibrillation. The patient has multiple myeloma and is under treatment by his oncologist in [place]. The patient's thrombocytopenia limits our ability to anticoagulate him. The patient was unable to complete MRI scan yesterday. The patient continues on IV Cardene to improve blood pressure and IV Cardizem to control atrial fibrillation rate. Our goal today is to transition to oral medications in preparation for transport tomorrow. I coordinate care with the patient's caseworker protective services today. I coordinate care with Dr. Rincon and with Dr. Rey Dejesus. Current Visit: Yes Qualifiers: CVA mechanism: embolism (2) Altered mental status Status: Acute Current Visit: Yes (3) Multiple myeloma Status: Acute Current Visit: Yes (4) Hypertension Status: Acute Current Visit: Yes Hospitalist: Subjective Interval history: The patient is more alert today. He is able to interact and has no dysarthria. The patient's vision is able to distinguish fingers. I reviewed the patient' s progress today with his at the bedside and daughter by telephone. They wish him to be transported back to [facility] and I am going to arrange that with the goal of transport tomorrow. The patient is more cooperative with care today and less delirious. He did not require as much sedation last night. The patient's shows some right sided weakness. Exam - Constitutional Vitals: Period Temp Pulse Resp BP Sys/Barajas Pulse Ox Last 24 Hr 96.3 F-98.1 F 80-122 12-28 90-183/61-128 94-99 Exam: Constitutional System: No distress. No tremulousness. The patient is breathing comfortably and appears to be pain-free. Head: Normocephalic, atraumatic. Ears, Nose and Throat System: No evidence of Otitis or Mastoiditis. No epistaxis or discharge Eyes System: Pupils equal, round, and reactive. Extraocular muscles intact. Neck: Supple, without adenopathy, No jugular venous distention. No thyromegaly , neck mass, or prior surgery apparent. Respiratory System: Chest clear to auscultation. The patient has no upper airway congestion Cardiovascular System: Heart with regular rate and rhythm. No murmur. GI System: Abdomen soft, nontender. Normo active bowel sounds present. Musculoskeletal System: limbs with no pedal edema. Full distal pulses. Neurological System: No discernable sensory deficit. The patient has speech but is slow Psychiatric System: Conversation is fluent today Results - Labs CBC & BMP: 02/12/17 04:43 02/12/17 04:43 Lab Results: I have reviewed the past 24 hour labs Quality Measures - VTE Contraindication No Overlap Therapy: Thrombocytopenia Contraindication to Pharmacological VTE Prophylaxis: Thrombocytopenia - Stroke Contraindication No Antithrombotic By Day Two: Metastatic Cancer
[2017-02-12] MEDS: METOPROLOL SUCCINATE XL 50 MG TABLET PO SCH (09:51)
[2017-02-12] MEDS: ALLOPURINOL 300 MG TABLET PO SCH (09:52)
[2017-02-12] MEDS: ASPIRIN 325 MG TABLET PO SCH (09:52)
[2017-02-12] MEDS: ACYCLOVIR 200 MG CAPSULE PO SCH (09:58)
[2017-02-12] MEDS ORDERED: NIFEdipine 10 MG CAPSULE PO PRN (13:12)
[2017-02-12] MEDS: LORazepam 2 MG/1 ML VIAL IV PRN (13:47)
--- NOTE | 2017-02-12 13:53 | CT Report ---
History is right-sided weakness Comparison 02/10/2017 The ventricles are normal in size There has been development of increasing low density in the anterior aspect left basal ganglia measuring 2 x 3 cm with mildly increasing mass effect in left frontal horn. No acute hemorrhage is seen. 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 Tiny amount of fluid in the maxillary sinuses present Impression: Interval progression of the subcortical ischemia in the anterior aspect of the left basal ganglia The CT exam was performed using one or more of the following dose reduction techniques: Automated exposure control, adjustment of the mA and/or kV according to patient size, or use of iterative reconstruction technique. PROCEDURE INTERPRETED AT [facility] DEPARTMENT OF RADIOLOGY Final Report Signed by: Dr. Iva Alvares
[2017-02-12] MEDS: LOSARTAN 50 MG TABLET PO SCH (14:58)
[2017-02-12] MEDS: NIFEdipine 10 MG CAPSULE PO PRN (15:55)
[2017-02-12] MEDS: niCARdipine INJ 50 MG in SODIUM CHLORIDE 0.9% 230 ML IV SCH (15:59)
[2017-02-12] MEDS: DILTIAZEM INJ 100 MG in SODIUM CHLORIDE 0.9% 100 ML IV SCH (22:16)
[2017-02-13 05:08] LABS: Eosinophils % 0.2 % (0.00-10.9); Hematocrit 27.1 VOL% (42.0-52.0); Hemoglobin 9.7 GM/DL (14.0-18.0); Immature Granulocytes % 1.2 %; Immature Granulocytes Absolute 0.06 #; Lymphocytes # 1.5 10*3/uL (1.4-4.0); Lymphocytes % 30.3 % (21.2-54.2); Mean Corpuscular HGB Conc 35.8 GM/DL (32-36); Mean Corpuscular Hemoglobin 38 PG (27-34); Mean Corpuscular Volume 105.4 FL (87-102); Mean Platelet Volume 13.4 FL (9.6-12.0); Monocytes # 0.4 10*3/uL (0.11-0.8); Monocytes % 8.6 % (1.7-12.7); NRBC # 0.02 10*3/uL; Neutrophils # 2.9 10*3/uL (1.4-7.4); Neutrophils % 59.7 % (38.7-73.9); Red Blood Count 2.57 MC/CUMM (3.8-5.5); Red Cell Distribution Width 14.1 % (9.3-17.3); White Blood Count 4.9 T/CUMM (4-12)
[2017-02-13 05:17] LABS: Platelet Count 22 T/CUMM (130-400)
[2017-02-13 05:30] LABS: Giant Platelets Few; Hypochromasia 1+; Macrocytosis Slight; Ovalocytes Slight; Platelet Estimate Decreased
[2017-02-13 05:39] LABS: Calcium 8.5 MG/DL (8.5-10.1); Magnesium 2.1 MG/DL (1.8-2.4); Osmolality,Calculated 283.1 MOS/KG (273-304); Potassium 3.2 MMOL/L (3.5-5.1)
[2017-02-13] MEDS: NIFEdipine 10 MG CAPSULE PO PRN ×2 (05:55→21:09)
--- NOTE | 2017-02-13 09:05 | Discharge Summary ---
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 The patient arrived to the hospital with a stroke syndrome including delirium and right hemapheresis. Repeat CAT scan at 48 hours reveals left basal ganglia infarction. The patient's mechanism of stroke is likely due to embolus on account of atrial fibrillation. The patient has past medical history including multiple myeloma with thrombocytopenia and was unable to safely take anticoagulation. The patient has improved in the last 2 days and NIH scale at the time of discharge is 6. The patient is awake alert and conversive this morning. He is aware of the month but got his age incorrect. The patient is feeding himself breakfast of soft diet. The patient has mild dysphasia and has some small aspiration to which she is able to clear successfully. The patient has some dysmetria of the right upper extremity but able to eat successfully. The patient is in good spirits and his family wishes to return him home. We are arranging for jet ambulance back to [place] presently. I have discussed the case last evening and again this morning with the [facility] transfer line. I coordinated care with Dr. Lucho Rincon for oncology evaluation and with Dr. Rey Dejesus for neurology. On the date of discharge, the chest is clear, heart has irregularly irregular rhythm at 90 bpm consistent with atrial fibrillation. Patient medications were reconciled upon admission, and again at the time of discharge. The patient was screened for tobacco use and found to be a previous smoker. The patient was given 4 minutes of tobacco avoidance education. The patient's medical decsion maker is themself, and when asked, they asked to be Full code. Discharge Time was 48 minutes, including final examination, evaluation and planning, education, reconciliation of medications, writing prescriptions, coordinating care with case work aide, and preparing discharge documentation. - Time spent with patient Time with patient DS: Greater than 30 minutes Diagnosis - Discharge Diagnosis (1) Cerebrovascular accident Status: Acute (2) Altered mental status Status: Resolved (3) Multiple myeloma Status: Chronic (4) Hypertension Status: Chronic Discharge Plan - Discharge Data Disposition: Disch/Xfer-[facility] Condition at Discharge: Stable Discharge Diet: other (Soft diet with thickened liquids and aspiration precautions) Activity: as per physical therapy Hygiene: no restrictions - Discharge Medications New cloNIDine 0.3 MG/24 HR PATCH [Flqepzsy-BHN-1 Patch] 1 patch TRANSDERM Q7DAY patch NIFEdipine CAP [Procardia] 10 mg PO Q4H PRN capsule PRN Reason: Hypertension Ziprasidone Inj [Geodon Inj] 10 mg IM Q6H PRN vial PRN Reason: Agitation Aspirin Tab 325 mg PO DAILY tablet Continue Allopurinol 300 mg PO QAM Metoprolol Succinate 50 mg PO QAM Sennosides [Senna] 8.6 mg PO DAILY PRN PRN Reason: Constipation Oxycodone HCl 5 mg PO Q4H PRN PRN Reason: Pain Escitalopram Oxalate 10 mg PO QAM Losartan [Cozaar] 50 mg PO QAM Acyclovir [Acyclovir Cap/Tab] 400 mg PO QAM Ondansetron HCl 8 mg PO Q8H PRN PRN Reason: Nausea/Vomiting Discontinued Investigational Chemotherapy 0 mg PO DAILY Gabapentin Cap/Tab [Neurontin Cap/Tab] 900 mg PO TID - Follow Up or Referral - Forms/Instructions Exam - Constitutional Vitals: Period Temp Pulse Resp BP Sys/Barajas Pulse Ox Last 24 Hr 96.5 F-99.2 F 67-97 12-36 120-187/69-105 96-99 Discharge Results Procedures and tests throughout hospitalization: Pending Orders 02/10/17 12:05 Urinalysis Stat 02/10/17 13:08 Blood Culture Stat Labs on day of discharge: Labs from last 24 hours 02/13/17 02/13/17 04:06 04:06 WBC 4.9 RBC 2.57 L Hgb 9.7 L Hct 27.1 L MCV 105.4 H MCH 38 H MCHC 35.8 RDW 14.1 Plt Count 22 L* MPV 13.4 H Neut % (Auto) 59.7 Lymph % (Auto) 30.3 Douglas % (Auto) 8.6 Eos % (Auto) 0.2 Baso % (Auto) 0.0 Neut # (Auto) 2.9 Lymph # (Auto) 1.5 Douglas # (Auto) 0.4 Eos # (Auto) 0.0 Baso # (Auto) 0.0 Immature Gran % 1.2 Nucleated RBC % 0.4 Immature Gran # 0.06 Nucleated RBCs # 0.02 Platelet Estimate Decreased Giant Platelets Few Immature Plt Fraction 7.1 H Hypochromasia 1+ Macrocytosis Slight Ovalocytes Slight Morphology Comment Sodium 142 Potassium 3.2 L Chloride 111 H Carbon Dioxide 22 Anion Gap 12.2 BUN 14 Creatinine 0.80 GFR Calculation 140 BUN/Creatinine Ratio 17.00 Glucose 92 Calculated Osmolality 283.1 Calcium 8.5 Magnesium 2.1 Preliminary micro results at discharge 02/10/17 13:08 Blood Culture - Preliminary Blood No growth at 1 day 02/10/17 12:54 Blood Culture - Preliminary Blood No growth at 1 day DS: Provider Date of admission: 02/10/17 15:00 Primary care physician: . No PCP Attending physician on admission: Seb Medley MD Consults: 02/10/17 17:21 Consult to Case Mgmt/Social Srvs [CONS] Routine Reason for Case Mgmt/Social Srvs: Discharge Planning Consult to Occupational Therapy [CONS] Routine Reason for Occupational Therapy: Evaluate and Treat Consult Comment: Stroke Consult to Physical Therapy [CONS] Routine Reason for Physical Therapy: Evaluate and Treat Consult Comment: stroke Consult to Physician [CONS] Routine Comment: possible stroke Consulting Provider: Saleem Plascencia Consulting Provider Notified: Yes Consult to Specialist Group: Neurology Person Notified: Dr Plascencia Date Notified: 02/10/17 Time Notified: 18:25 Consult Notification Comment: Will see patient in AM 02/10/17 17:40 Consult to Pastoral Services [CONS] Routine Comment: Pastoral Screen: Request Gear [employer]ber Set Up Operator Visit Pastoral Screen Source of Request: Family Name of Physician Requesting: Galindo 02/10/17 18:07 Consult to Physician [CONS] Routine Comment: patient with Multiple Myeloma and stroke Consulting Provider: Brandon Atkinson Consulting Provider Notified: Yes Person Notified: Dr Dobbins Date Notified: 02/10/17 Time Notified: 18:22 Consult Notification Comment: will see patient in AM 02/11/17 05:30 Consult to Physician [CONS] Routine Comment: Consulting Provider: Michael Dobbins Consulting Provider Notified: Yes Consult to Specialist Group: Oncology When should Consulting Provider be notified: Now Person Notified: Dr. Dobbins Date Notified: 02/11/17 Time Notified: 05:33 02/12/17 08:09 Consult to Case Mgmt/Social Srvs [CONS] Routine Reason for Case Mgmt/Social Srvs: Discharge Planning Other Consult Comment: transport to [facility] in AM Discharging clinician: Seb Medley MD
[2017-02-13] MEDS: ACYCLOVIR 200 MG CAPSULE PO SCH (10:04)
[2017-02-13] MEDS: METOPROLOL SUCCINATE XL 50 MG TABLET PO SCH (10:04)
[2017-02-13] MEDS: ASPIRIN 325 MG TABLET PO SCH (10:04)
[2017-02-13] MEDS: LOSARTAN 50 MG TABLET PO SCH (10:04)
[2017-02-13] MEDS: ALLOPURINOL 300 MG TABLET PO SCH (10:04)
[2017-02-13] MEDS: DILTIAZEM INJ 100 MG in SODIUM CHLORIDE 0.9% 100 ML IV SCH (22:02)
[2017-02-14] MEDS: oxyCODONE IR 5 MG TABLET PO PRN ×2 (02:05→09:24)
[2017-02-14] MEDS: ACYCLOVIR 200 MG CAPSULE PO SCH (09:23)
[2017-02-14] MEDS: ASPIRIN 325 MG TABLET PO SCH ×2 (09:23→17:53)
[2017-02-14] MEDS: METOPROLOL SUCCINATE XL 50 MG TABLET PO SCH (09:23)
[2017-02-14] MEDS: ALLOPURINOL 300 MG TABLET PO SCH (09:24)
[2017-02-14] MEDS: NIFEdipine 10 MG CAPSULE PO PRN (09:24)
[2017-02-14] MEDS: LOSARTAN 50 MG TABLET PO SCH (09:29)
--- NOTE | 2017-02-14 14:24 | Hospitalist Progress Note ---
Assessment and Plan (1) Cerebrovascular accident Status: Acute Assessment and plan: The patient has stroke syndrome which is most likely associated with his ongoing atrial fibrillation. The patient has multiple myeloma and is under treatment by his oncologist in [place]. The patient's thrombocytopenia limits our ability to anticoagulate him. The patient is improving and should be ready for discharge in a couple of days. The patient's family is considering taking him back to [place] in private automobile. Current Visit: Yes Qualifiers: CVA mechanism: embolism (2) Altered mental status Status: Resolved Current Visit: Yes (3) Multiple myeloma Status: Chronic Current Visit: Yes (4) Hypertension Status: Chronic Current Visit: Yes Hospitalist: Subjective Interval history: The patient is resting quietly in bed today. He is not having any choking symptoms. The patient is tolerating regular diet. Exam - Constitutional Vitals: Period Temp Pulse Resp BP Sys/Barajas Pulse Ox Last 24 Hr 98.5 F-99.1 F 84-102 20-22 137-182/64-97 94-98 Exam: Constitutional System: No distress. No tremulousness. The patient is breathing comfortably and appears to be pain-free. Head: Normocephalic, atraumatic. Ears, Nose and Throat System: No evidence of Otitis or Mastoiditis. No epistaxis or discharge Eyes System: Pupils equal, round, and reactive. Extraocular muscles intact. Neck: Supple, without adenopathy, No jugular venous distention. No thyromegaly , neck mass, or prior surgery apparent. Respiratory System: Chest clear to auscultation. The patient has no upper airway congestion Cardiovascular System: Heart with regular rate and rhythm. No murmur. GI System: Abdomen soft, nontender. Normo active bowel sounds present. Musculoskeletal System: limbs with no pedal edema. Full distal pulses. Neurological System: No discernable sensory deficit. The patient has speech but is slow Psychiatric System: Conversation is fluent today Results - Labs CBC & BMP: 02/13/17 04:06 02/13/17 04:06 Lab Results: I have reviewed the past 24 hour labs Quality Measures - VTE Contraindication No Overlap Therapy: Thrombocytopenia Contraindication to Pharmacological VTE Prophylaxis: Thrombocytopenia - Stroke Contraindication No Antithrombotic By Day Two: Metastatic Cancer
[2017-02-14] MEDS: DILTIAZEM INJ 100 MG in SODIUM CHLORIDE 0.9% 100 ML IV SCH (21:58)
[2017-02-15] MEDS: NIFEdipine 10 MG CAPSULE PO PRN ×2 (06:36→15:30)
[2017-02-15] MEDS: ACYCLOVIR 200 MG CAPSULE PO SCH (09:17)
[2017-02-15] MEDS: LOSARTAN 50 MG TABLET PO SCH (09:18)
[2017-02-15] MEDS: METOPROLOL SUCCINATE XL 50 MG TABLET PO SCH (09:18)
[2017-02-15] MEDS: ASPIRIN 325 MG TABLET PO SCH (09:18)
[2017-02-15] MEDS: ALLOPURINOL 300 MG TABLET PO SCH (09:19)
--- NOTE | 2017-02-15 11:04 | Hospitalist Progress Note ---
Assessment and Plan (1) Cerebrovascular accident Status: Acute Assessment and plan: The patient has stroke syndrome which is most likely associated with his ongoing atrial fibrillation. The patient has multiple myeloma and is under treatment by his oncologist in [place]. The patient's thrombocytopenia limits our ability to anticoagulate him. The patient is improving and should be ready for discharge tomorrow. The patient's family plan is to transfer to [facility] tomorrow and from there return to [place]. Current Visit: Yes Qualifiers: CVA mechanism: embolism (2) Altered mental status Status: Resolved Current Visit: Yes (3) Multiple myeloma Status: Chronic Current Visit: Yes (4) Hypertension Status: Chronic Current Visit: Yes Hospitalist: Subjective Interval history: Mr. Goyal is improving a little each day. Speech is slow but rational. The patient requires moderate assistance for transfers from bed to standing to toilet and return. The patient complains of multiple loose stools per day. Exam - Constitutional Vitals: Period Temp Pulse Resp BP Sys/Barajas Pulse Ox Last 24 Hr 98.0 F-99.2 F 84-93 16-20 137-191/75-105 96-99 Exam: Constitutional System: No distress. No tremulousness. The patient is breathing comfortably. Head: Normocephalic, atraumatic. Ears, Nose and Throat System: No evidence of Otitis or Mastoiditis. No epistaxis or discharge Eyes System: Pupils equal, round, and reactive. Extraocular muscles intact. Neck: Supple, without adenopathy, No jugular venous distention. No thyromegaly , neck mass, or prior surgery apparent. Respiratory System: Chest clear to auscultation. The patient has no upper airway congestion Cardiovascular System: Heart with regular rate and rhythm. No murmur. GI System: Abdomen soft, nontender. Normo active bowel sounds present. Musculoskeletal System: limbs with no pedal edema. Full distal pulses. Neurological System: No discernable sensory deficit. The patient has speech but is slow Psychiatric System: Conversation is fluent today Results - Labs CBC & BMP: 02/13/17 04:06 02/13/17 04:06 Lab Results: I have reviewed the past 24 hour labs Quality Measures - VTE Contraindication No Overlap Therapy: Thrombocytopenia Contraindication to Pharmacological VTE Prophylaxis: Thrombocytopenia - Stroke Contraindication No Antithrombotic By Day Two: Metastatic Cancer
[2017-02-15] MEDS ORDERED: LOPERAMIDE 2 MG CAPSULE PO PRN (11:06)
[2017-02-15] MEDS: MORPHINE 2 MG/1 ML SYRINGE IV SCH (13:31)
[2017-02-15] MEDS: oxyCODONE IR 5 MG TABLET PO PRN (15:27)
[2017-02-16] MEDS: MORPHINE 2 MG/1 ML SYRINGE IV SCH ×3 (00:16→13:01)
[2017-02-16] MEDS: ASPIRIN 325 MG TABLET PO SCH (09:38)
[2017-02-16] MEDS: ALLOPURINOL 300 MG TABLET PO SCH (09:38)
[2017-02-16] MEDS: ACYCLOVIR 200 MG CAPSULE PO SCH (09:38)
[2017-02-16] MEDS: METOPROLOL SUCCINATE XL 50 MG TABLET PO SCH (09:38)
[2017-02-16] MEDS: LOSARTAN 50 MG TABLET PO SCH (09:38)
--- NOTE | 2017-02-16 14:38 | Discharge Summary ---
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. The patient arrived to the hospital with a stroke syndrome including delirium and right hemapheresis. Repeat CAT scan at 48 hours revealed left basal ganglia infarction. The patient's mechanism of stroke is likely due to embolus on account of atrial fibrillation. The patient has past medical history including multiple myeloma with thrombocytopenia and was unable to safely take anticoagulation. The patient has improved since admission. The patient is awake alert and conversive this morning. The patient is feeding himself breakfast of soft diet. The patient has mild dysphasia and has some small aspiration to which she is able to clear successfully. The patient has some dysmetria of the right upper extremity but able to eat successfully. He was originally scheduled for discharge 02/13 but his discharge plan was changed. He will now be discharged to the [facility]. The plan is for him to then return to [place], [place]. Patient medications were reconciled upon admission, and again at the time of discharge. - Time spent with patient Time with patient DS: Greater than 30 minutes (40) Diagnosis - Discharge Diagnosis (1) Cerebrovascular accident Status: Resolved (2) Thrombocytopenia Status: Chronic (3) Altered mental status Status: Resolved (4) Multiple myeloma Status: Chronic Discharge Plan - Discharge Data Disposition: Disch/Xfer-[facility] Condition at Discharge: Stable Discharge Diet: advance to your usual diet Activity: as per physical therapy Weight Bearing at Discharge: weight bear as tolerated Contact your physician if you experience:: fever over 101, Shortness of breath - Discharge Medications New cloNIDine 0.3 MG/24 HR PATCH [Kipolhvx-IML-5 Patch] 1 patch TRANSDERM Q7DAY patch NIFEdipine CAP [Procardia] 10 mg PO Q4H PRN capsule PRN Reason: Hypertension Ziprasidone Inj [Geodon Inj] 10 mg IM Q6H PRN vial PRN Reason: Agitation Aspirin Tab 325 mg PO DAILY tablet Continue Allopurinol 300 mg PO QAM Metoprolol Succinate 50 mg PO QAM Sennosides [Senna] 8.6 mg PO DAILY PRN PRN Reason: Constipation Oxycodone HCl 5 mg PO Q4H PRN PRN Reason: Pain Escitalopram Oxalate 10 mg PO QAM Losartan [Cozaar] 50 mg PO QAM Acyclovir [Acyclovir Cap/Tab] 400 mg PO QAM Ondansetron HCl 8 mg PO Q8H PRN PRN Reason: Nausea/Vomiting Discontinued Investigational Chemotherapy 0 mg PO DAILY Gabapentin Cap/Tab [Neurontin Cap/Tab] 900 mg PO TID - Follow Up or Referral - Forms/Instructions Exam - Constitutional Vitals: Period Temp Pulse Resp BP Sys/Barajas Pulse Ox Last 24 Hr 97.3 F-98.6 F 68-95 16-20 123-165/73-99 93-100 General appearance: over weight - Head Head exam: Present: normocephalic, atraumatic - Eye Eye exam: Present: EOMI Pupils: Present: JENNA - ENT ENT exam: Present: normal exam - Neck Neck exam: Present: normal inspection - Respiratory Respiratory exam: Present: clear to auscultation bilaterally. Absent: rhonchi, wheezes - Cardiovascular Cardiovascular exam: Present: regular rate and rhythm - GI/Abdominal GI/Abdominal exam: Present: normal bowel sounds, soft. Absent: tenderness, rebound - Extremities Exam Extremities exam: Present: normal inspection - Back Exam Back exam: Present: normal inspection - Neurological Exam Neurological exam: Present: alert, oriented X3 - Psychiatric Psychiatric exam: Present: normal affect, normal mood - Skin Skin exam: Present: warm, intact DS: Provider Date of admission: 02/10/17 15:00 Primary care physician: . No PCP Attending physician on admission: Seb Medley MD Consults: 02/10/17 17:21 Consult to Case Mgmt/Social Srvs [CONS] Routine Reason for Case Mgmt/Social Srvs: Discharge Planning Consult to Occupational Therapy [CONS] Routine Reason for Occupational Therapy: Evaluate and Treat Consult Comment: Stroke Consult to Physical Therapy [CONS] Routine Reason for Physical Therapy: Evaluate and Treat Consult Comment: stroke Consult to Physician [CONS] Routine Comment: possible stroke Consulting Provider: Saleem Plascencia Consulting Provider Notified: Yes Consult to Specialist Group: Neurology Person Notified: Dr Plascencia Date Notified: 02/10/17 Time Notified: 18:25 Consult Notification Comment: Will see patient in AM 02/10/17 17:40 Consult to Pastoral Services [CONS] Routine Comment: Pastoral Screen: Request Production Supervisor Visit Pastoral Screen Source of Request: Family Name of Physician Requesting: Galindo 02/10/17 18:07 Consult to Physician [CONS] Routine Comment: patient with Multiple Myeloma and stroke Consulting Provider: Brandon Atkinson Consulting Provider Notified: Yes Person Notified: Dr Dobbins Date Notified: 02/10/17 Time Notified: 18:22 Consult Notification Comment: will see patient in AM 02/11/17 05:30 Consult to Physician [CONS] Routine Comment: Consulting Provider: Michael Dobbins Consulting Provider Notified: Yes Consult to Specialist Group: Oncology When should Consulting Provider be notified: Now Person Notified: Dr. Dobbins Date Notified: 02/11/17 Time Notified: 05:33 02/12/17 08:09 Consult to Case Mgmt/Social Srvs [CONS] Routine Reason for Case Mgmt/Social Srvs: Discharge Planning Other Consult Comment: transport to [facility] in AM 02/13/17 17:01 PT [Consult to Physical Therapy] [CONS] Routine Reason for Physical Therapy: Weakness Start Therapy: Tomorrow Discharging clinician: Lasha Layne MD
[2017-02-16 16:44] VITALS: BP 130/83
== END 2017-02-16 17:00 | DRG 64 ==
LOC: N.ED 11:11 → SUATTDRO 15:00 → N.EDINP 15:00 → N.ICU 17:07 → N.TELEN 02-12 16:44
PROVIDERS: ADMIT Internal Medicine; ATTEND Internal Medicine